=== PATIENT | female | born 1975 | race Caucasian/White ===

== ENCOUNTER → 2020-06-21 07:21 | Outpatient (CLI) | payer OTHER, SELFPAY ==
[2020-06-21 08:15] LABS: Add Manual Diff / Slide Review NO; Basophils Absolute Auto 0 /uL (0-100); Basophils Percent Auto 0.6 % (0-2); Eosinophils Absolute Auto 200 /uL (0-450); Eosinophils Percent Auto 3.4 % (2-4); Hematocrit 38.2 % (36-46); Hemoglobin 12.4 g/dL (12.0-16.0); Lymphocytes Absolute Auto 2000 /uL (1100-4500); Lymphocytes Percent Auto 43.8 % (25-40); Mean Corpuscular HGB Conc 32.6 % (30-36); Mean Corpuscular Hemoglobin 30.8 PG (26-34); Mean Corpuscular Volume 94.4 fL (80-100); Monocytes Absolute Auto 400 /uL (0-900); Monocytes Percent Auto 8.8 % (3-14); Neutrophils Absolute Auto 2000 /uL (1500-7000); Neutrophils Percent Auto 43.4 % (50-75); Platelet Count 208 X10^3/uL (150-400); Red Blood Cell Count 4.04 X10^6/uL (4.0-5.2); Red Cell Distribution Width 13.5 % (11.6-14.8); White Blood Cell Count 4.6 X10^3/uL (4.5-11.0)
[2020-06-21 08:39] LABS: Alanine Aminotransferase 12 IU/L (<35); Albumin Globulin Ratio 1.4 (1.0-2.8); Alkaline Phosphatase 35 U/L (38-126); Aspartate Aminotransferase 23 IU/L (14-36); BUN Creatinine Ratio 19.4 (6-22); Bilirubin Total 0.5 mg/dL (0.2-1.3); Blood Urea Nitrogen 13 mg/dL (7-17); Calcium 8.5 mg/dL (8.4-10.2); Carbon Dioxide 28 mmol/L (22-32); Chloride 106 mmol/L (98-107); Cholesterol 184 mg/dL (140-199); Estimated Glomerular Filt Rate > 60.0 mL/min (>60); Globulin 2.9 g/dL (1.7-4.1); Glucose 108 mg/dL (70-100); HDL Cholesterol 71 mg/dL (40-60); HEMOLYSIS < 15 (0-50); LDL Cholesterol Calculated 101 mg/dL (<100); Sodium 135 mmol/L (137-145); Total Protein 6.9 g/dL (6.3-8.2); Triglycerides 61 mg/dL (35-150)
[2020-06-21 08:53] LABS: Vitamin D 25 Hydroxy (D3) 48.4 ng/mL (30.0-100.0)
[2020-06-21 09:08] LABS: Thyroid Stimulating Hormone 2.72 uIU/mL (0.47-4.68)
[2020-06-21 10:04] LABS: Free T3, Triiodothyronine Free 3.49 pg/mL (2.77-5.27)
== END ==
PROVIDERS: PCP Family Medicine; Referring Provider Family Medicine; Visit Provider Family Medicine
DX: Z13.0 Encounter for screening for diseases of the blood and blood-forming organs and certain disorders involving the immune mechanism (principal); Z13.1 Encounter for screening for diabetes mellitus; Z13.220 Encounter for screening for lipoid disorders; Z13.29 Encounter for screening for other suspected endocrine disorder; Z13.820 Encounter for screening for osteoporosis
CPT/HCPCS: 36415; 80053; 80061; 82306; 84439; 84443; 84481; 85025

== ENCOUNTER → 2020-08-09 11:39 | Outpatient (CLI) | payer OTHER, SELFPAY ==
[2020-08-09 12:53] LABS: COVID19 -Nasal RAPID Negative (Negative)
== END ==
PROVIDERS: PCP Family Medicine; Visit Provider Physician Assistant
DX: Z20.822 Contact with and (suspected) exposure to COVID-19 (principal); Z01.812 Encounter for preprocedural laboratory examination
CPT/HCPCS: 87635

== ENCOUNTER 2020-08-10 06:54 | Day surgery (SDC) | payer OTHER, SELFPAY ==
[2020-08-10] VITALS (8 sets, daily range): BP systolic 95–110; BP diastolic 38–70; PULSE 56–73; RESP 10–17; TEMP 36.5–37.2; O2SAT 97–100; BMI 20.9
--- NOTE | 2020-08-10 | PATH_ITS ---
[facility] Accession Number: [id number] . 01 Material submitted: . body - FIBROID . 01 Clinical history: . LAPAROSCOPIC MYOMECTOMY . 02 Diagnosis: Fibroid (Weight 42 grams): Portions of benign leiomyoma (10 x 7 x 4.5 cm in aggregate dimension). Negative for atypia or malignancy. MRV 08/15/2020 1349 Local . 02 Electronically signed: . Jocelyn Monroe MD, Pathologist NPI- [id number] . 01 Gross description: . The specimen is received in formalin, labeled fibroid, and consists of multiple arenas-white fibroid fragments weighing 42 g and measuring 10.0 x 7.0 x 4.5 cm in aggregate. Sectioning reveals arenas-white, whorled cut surfaces with no areas of hemorrhage, necrosis, or cystic degeneration. Outreach Counselor sections are submitted in cassettes [id number]. ([id number]) /[facility] 08/12/2020 1443 Local . 02 Pathologist provided ICD-10: R10.2, D25.9, D25.2 . 02 CPT . 854141 Performed at: 01 [facility] [address] [place] [id number] MD Richard Enriquez MD Phone: [phone] Performed at: 02 [facility] [address] [place], [place] [id number] MD Sheyla Rodriguez MD Phone: [phone]
[2020-08-10] MEDS: LACTATED RINGERS 1,000 ML 42 ML IV (07:18)
[2020-08-10] MEDS: LACTATED RINGERS 1,000 ML 100 ML IV (07:30)
--- NOTE | 2020-08-10 07:42 | P.HP_ITS ---
History of Present Illness History of Present Illness Date Patient Seen: 08/10/20 Time Patient Seen: 07:42 Chief complaint: LAPAROSCOPIC MYOMECTOMY Narrative: Patient is a 45-year-old 2 para 0 with pelvic pain and menorrhagia with a large exophytic fibroid off of the right fundus of the uterus. She presents today for laparoscopic removal of the fibroid. Patient History Medical History (Updated 08/07/20 @ 17:14 by Bee Gamez RN) Anorexia nervosa (~1989) Anxiety (~1989) Bulimia (~1989) Chicken pox (~1977) Depression (~1989) Elective Human papilloma virus (~2017) Left ovarian cyst Miscarriage Mumps (~1982) Shoulder pain (~2017) Surgical History (Updated 02/12/18 @ 22:33 by Bushra Hernandez) Anesthesia History of adenoidectomy (~1977) Family & Social History Family History (Updated 02/12/18 @ 22:35 by Bushra Hernandez) Father CVA (cerebral vascular accident) Sister Mental health problem Anxiety with depression Social History: household members none lives independently Yes Tobacco & Substance use: Smoking Status Never smoker alcohol intake current alcohol intake frequency a few times a week Substance Use Type does not use Meds Home Medications and Allergies Home Medications Medication Instructions Recorded Confirmed Type ascorbic acid (vitamin C) [Vitamin 500 mg PO DAILY 08/10/20 08/10/20 History C] cholecalciferol (vitamin D3) 25 mcg PO DAILY 08/10/20 08/10/20 History [Vitamin D3] [id number]-vit K 1 tab-cap PO DAILY 08/10/20 08/10/20 History [Multi For Her] vitamin B complex [B Complex] 1 tab PO DAILY 08/10/20 08/10/20 History Allergies Allergy/AdvReac Type Severity Reaction Status Date / Time adhesive Allergy Intermediate Rash Verified 08/10/20 07:10 latex Allergy Intermediate Rash Verified 08/10/20 07:10 Exam Vital Signs (past 8 hours): - 08/10/20 07:12 Temperature 99.0 F Pulse Rate 73 Respiratory Rate 15 Blood Pressure 107/70 Pulse Oximetry 100 Oxygen Delivery Method Room Air Narrative Exam Narrative: HEENT: No thyromegaly, no anterior cervical or supraclavicular lymphadenopathy. Lungs:Clear to auscultation bilaterally, no wheezes. Cardiovascular: Regular rate and rhythm, no murmurs, rubs, or gallops. Abdomen: No scars. No hepatosplenomegaly. No masses palpable. External genitalia: Normal Vagina: Normal Cervix: Normal, nulliparous. Bimanual exam: 9 Week size multi fibroid uterus. Mobile. Rectal: No masses. Assessment & Plan Assessment & Plan narrative: Assessment: 45-year-old 2 para 0 with menorrhagia and pelvic pain Enlarged fibroid uterus with a large exophytic fibroid coming off the right fun dus of the uterus Plan: Patient desires uterine sparing surgery Laparoscopic removal of the exophytic fibroid The risks, benefits, and alternatives to the procedure were explained to the patient. The risks including bleeding, infection, injury to the bowel, bladder, or ureters. She understands these risks and agrees to proceed. A full par Q was held and consent form was signed. COVID-19 COVID-19 status: Negative Result date/Date tested (Pos, Neg/Pending): 08/09/20 Time Spent With Patient Time with patient: less than 15 minutes Quality MIPS - Admit Advanced Care Plan / Current Medications Measures: #47 ? Advanced Care Plan Clinician documentation instruction: document at admission. [] I confirmed that the patient's Advance Care Plan is present, code status is documented, or surrogate decision maker is listed in the patient?s medical record. [SATISFIES MIPS PERFORMANCE] If Yes, Stop Here [] The patient?s Advance Care plan is not present because: (select) [MIPS PERFORMANCE EXCEPTION/EXCLUSION] [] I confirmed today that the patient does not wish or was not able to name a surrogate decision maker or provide an Advance Care Plan. [] Hospice care is currently being provided or has been provided this calendar year [] I did NOT confirm today the presence of an Advance Care Plan or surrogate decision maker documented within the patient's medical record. [DOES NOT SATISFY MIPS PERFORMANCE] #130 - Documentation of Current Medications in the Medical Record Clinician documentation instruction: use macro the first time you see a patient. [] I have utilized all available immediate resources to obtain, update, or review the patient?s current medications. [SATISFIES MIPS PERFORMANCE] If Yes, Stop Here [] The patient is not eligible for medication reconciliation; the patient is in an emergent medical situation where delaying treatment would jeopardize the patient?s health. [MIPS PERFORMANCE EXCEPTION/EXCLUSION] [] I did NOT confirm, update or review the patient's current list of medications today. [DOES NOT SATISFY MIPS PERFORMANCE] MIPS - CL Central Venous Catheter Placement Measure: #76 ? Prevention of Central Venous Catheter (CVC) ? Related Bloodstream Infection Clinician documentation instruction: use macro every time you place a central line. [] All elements of Maximal Sterile Barrier Technique, including hand hygiene, skin prep, and sterile ultrasound technique (if used) were followed. [SATISFIES MIPS PERFORMANCE] If Yes, Stop Here [] If ?No?, the medical reason all elements were NOT used for medical reason [] (ex. emergent condition). [] Maximal Sterile Barrier Technique was not followed, no reason provided [DOES NOT SATISFY MIPS PERFORMANCE] MIPS - DC Heart Failure Measures: #5 - Heart Failure (HF): Angiotensin-Converting Enzyme (OLEGARIO) Inhibitor or Angiotensin Receptor Micah (ARB) Therapy for Left Ventricular Systolic Dysfunction (LVSD) and #8 - Heart Failure (HF): Beta-Micah Therapy for Left Ventricular Systolic Dysfunction (LVSD) Clinician documentation instruction: use macro at every CHF discharge. [] The patient has current or prior documentation of left ventricular ejection fraction (LVEF) less than 40%, or moderate or severely depressed left ventricular systolic function. Answer both: [SATISFIES MIPS PERFORMANCE] [] The patient was prescribed or already taking an Angiotensin-Converting Enzyme (OLEGARIO) Inhibitor, or Angiotensin Receptor Micah (ARB). [] The patient was prescribed or already taking a beta-micah. If Yes to Both, Stop Here [] Patient not prescribed/taking: [MIPS PERFORMANCE EXCEPTION/EXCLUSION] [] OLEGARIO or ARB for medical/patient/system reason(s) including [] (ex. allergy, intolerance, contraindication) [] Beta-micah for medical/patient/system reason(s) including [] (ex. allergy, intolerance, contraindication) [] Patient not prescribed/taking: [DOES NOT SATISFY MIPS PERFORMANCE] [] OLEGARIO or ARB, no reason given [] Beta-micah, no reason given
--- NOTE | 2020-08-10 07:46 | PM.PREOP ---
Pre-operative Note COVID-19 COVID-19 status: Negative Result date/Date tested (Pos, Neg/Pending): 08/09/20 Interval Note History & Physical reviewed/Exam performed by Physician: Yes Changes to H&P: No H&P completed within 30 days and has changed as indicated here:: 08/10/20
[2020-08-10] MEDS: ACETAMINOPHEN IV 1,000 MG/100 ML VIAL 400 MG IV (08:15)
--- NOTE | 2020-08-10 08:24 | SUR.OPER ---
Lithotomy on padded OR bed. [place] Pad Positioner under torso. Head on pillow, arms padded and tucked at sides. Legs secured in padded yellow fins stirrups.
[2020-08-10] MEDS: BUPIVACAINE 0.5% W/ EPI (PF) 30 ML VIAL INJ (08:41)
--- NOTE | 2020-08-10 09:13 | P.OP_ITS ---
Operative Date/Time/Diagnoses Date of procedure: 08/10/20 Time of procedure: 09:14 Pre-op diagnosis: Pelvic pain Menorrhagia Fibroid uterus Post-op diagnosis: same Procedure & Clinicians Procedure: Procedures Operation Date: 08/10/20 07:45 Actual Procedures Side Surgeon p Laparoscopic Myomectomy Josie Molina MD Indications: Fibroid uterus Pelvic pain Menorrhagia Surgeon: Josie Molina Budget Engineer: Cary Wayne Anesthesia Type: General Operative Notes Findings: Ten week size multifibroid uterus 8 cm right fundal pedunculated fibroid Multiple other smaller intramural and submucosal fibroids Normal tubes and ovaries Normal liver and gallbladder Appendix not visualized Closure Type: primary Specimen(s): other (Fibroid) Estimated blood loss (mL): 10 Blood products transfused: none Procedure in detail: After informed consent was obtained, the patient was taken to the operating room where she was placed in the dorsal supine position. After adequate general endotracheal anesthesia was achieved, she was placed in the dorsal lithotomy position, and prepped and draped in the usual sterile fashion. A time-out was performed. A bivalve speculum was placed into the vagina and the anterior lip of the cervix grasped with a single-tooth tenaculum. The cervical os was sequentially dilated until the Zumi uterine manipulator could pass easily into the endometrial cavity. The single-tooth tenaculum was removed from the anterior lip of the cervix. The bivalve speculum was removed from the vagina. Attention was turned to the abdomen where 6 cc of 0.5% Marcaine with epinephrine were injected in the umbilical fold. A 5 mm incision was made. The Veress needle was placed into the peritoneal cavity, and its placement confirmed by aspiration and drop test. The abdominal cavity was insufflated with 3.2 L of CO2, and the pressure reached 14 mm of mercury. The Veress needle was removed, and a 5 mm trocar was placed without difficulty. Two other incisions were made lateral to the umbilicus after 6 cc of 0.5% Marcaine with epinephrine were injected. Two 5 mm incisions were made. Two 5 mm trocars were placed under direct visualization. Through the left trocar, the laparoscopic tenaculum was used to grasp the pedunculated fibroid. Through the right trocar the PlasmaKinetic was used to cauterize and cut at the base of the fibroid. This was done by the learning support assistant. Hemostasis was achieved. 6 cc of 0.5% Marcaine with epinephrine were injected above the pubic symphysis. A 12 mm incision was made. A 12 mm trocar was placed under direct visualization. The endobag was placed through the suprapubic trocar. Fibroid was placed into the bag. The trocar was removed, and the edges of the bag were brought up through the skin. The fascia was extended bilaterally with retraction from the learning support assistant. The Harsha was placed into the endobag. The fibroid was morcellated in approximately 12 pieces. The bag and Harsha were removed from the incision. The fascia on the suprapubic incision was closed with a running suture with 0 Vicryl, with retraction from the learning support assistant. The abdomen was re-insufflated. There was a small amount of bleeding at the site of excision of the fibroid. This was cauterized with the PlasmaKinetic for hemostasis. The pelvis was irrigated with warm normal saline. There was no bleeding noted. The instruments were removed from the abdomen. The CO2 was allowed to escape. The trocars were removed. The incisions were closed with 4 0 Monocryl in a subcuticular fashion. Steri- Strips and Allevyn dressings were placed. The Zumi uterine manipulator was removed from the uterus. Sponge, lap, and instrument counts were correct x2. The patient tolerated the procedure well, and was taken to PACU in stable condition. Complications: none Post-operative Condition: stable Disposition: PACU Plan for aftercare: Home after recovery
[2020-08-10] MEDS: ONDANSETRON 4 MG/2 ML INJ IV (09:33)
[2020-08-10] MEDS: OXYCODONE IR 5 MG TABLET PO (09:33)
== END 2020-08-10 10:15 | disposition home or self-care (01) ==
PROVIDERS: PCP Family Medicine; Referring Provider Family Medicine; Visit Provider Obstetrics & Gynecology
PROC: 0UB94ZZ Excision of Uterus, Percutaneous Endoscopic Approach (ICD-10-PCS; CPT 58545; principal; 2020-08-10 07:45)
DX: D25.2 Subserosal leiomyoma of uterus (principal); D25.1 Intramural leiomyoma of uterus
CPT/HCPCS: 58545; J0131; J1100; J2250; J2405; J2704; J3010

== ENCOUNTER → 2020-10-27 07:36 | Outpatient (CLI) | payer OTHER, SELFPAY ==
--- NOTE | 2020-10-27 07:37 | DI.RAD.S_ITS ---
PROCEDURE: XR LUMBAR SPINE 5V INDICATIONS: chronic low back pain and stiffness TECHNIQUE: 3 views of the lumbar spine were acquired. COMPARISON: None. FINDINGS: Bones: 5 [id number] vertebrae are present. There is normal bony alignment. No vertebral body compression fractures. No suspicious bony lesions. Mild L2-L3, L3-L4, L4-L5 and L5-S1 degenerative disc changes. No pars interarticularis defects. Soft tissues: Overlying bowel gas pattern is normal. No suspicious soft tissue calcifications. IMPRESSION: 1. Multilevel degenerative disease. 2. No fracture. No acute osseous lesion. If symptoms and/or clinical suspicion for pathology persists, evaluation with MRI should be considered for further assessment. Dictated by: Samia Bowles MD, PhD on 10/27/2020 at 10:25 Approved by: Samia Bowles MD, PhD on 10/27/2020 at 10:27
== END ==
PROVIDERS: PCP Family Medicine; Referring Provider Family Medicine; Visit Provider Family Medicine
DX: M54.5 Low back pain (principal); M51.36 Other intervertebral disc degeneration, lumbar region; G89.29 Other chronic pain
CPT/HCPCS: 72100

== ENCOUNTER → 2025-03-22 16:01 | Outpatient (CLI) | payer BC, SELFPAY | PROVIDERS: PCP Family Medicine; Referring Provider Obstetrics & Gynecology; Visit Provider Obstetrics & Gynecology | DX: R68.82 Decreased libido (principal) | CPT/HCPCS: 36415; 84402; 84403 ==